=== PATIENT | male | born 1980 | race Caucasian/White ===

== ENCOUNTER 2017-04-29 22:59 | Emergency (ER) | payer OTHER ==
--- NOTE | ~2017-04-29 | CT2 ---
[facility] A Service of [facility] RADIOLOGY TEXT RESULTS PATIENT: ADIN HSIEH LOCATION: [facility] : [birth year] UNIT #: [id number] AGE: [address]: Seamus Luciano MD SEX: M ORDER DR: [id number] [address] [address] [id number] E MR#: [id number] #: [id number] NAME: ADIN HSIEH : 1980 SEX: M STUDY DATE/TIME: 04/30/2017 2:28 UNIT: RIVERA ROOM: STUDY DESCRIPTION: CT Abd and Pelv W Cont Attending Physician: Seamus Luciano M.D. Ordering Physician: Seamus Luciano M.D. Primary Care Physician: Primary Care Physician No MEDICAL IMAGING REPORT This report is preliminary unless electronic signature is present EXAM CT abdomen and pelvis with contrast INDICATION Right lower quadrant abdominal pain for the past 3 days. PROCEDURE Contrast-enhanced CT abdomen and pelvis. This CT exam was performed with one or more of the following radiation dose reduction techniques: automatic exposure control, adjustment of mA and/or kV according to patient size, and iterative reconstruction. COMPARISON None. FINDINGS ABDOMEN WITH CONTRAST: Included lung bases clear. Liver enlarged measuring 22.5 cm. No liver or splenic lesion. Kidneys, adrenal glands, pancreas, gallbladder unremarkable. Bowel loops are nondilated, appendix is normal. PELVIS WITH CONTRAST: No pelvic mass or fluid. No aggressive-appearing bone lesion. IMPRESSION 1. No acute findings in the abdomen or pelvis. Normal appendix. 2. Hepatomegaly Dictated by... [facility] A Service of [facility] RADIOLOGY TEXT RESULTS PATIENT: ADIN HSIEH LOCATION: [facility] : [birth year] UNIT #: [id number] AGE: [address]: Seamus Luciano MD SEX: M ORDER DR: Rigoberto Boss M.D. THIS IS AN ELECTRONICALLY VERIFIED REPORT Rigoberto Boss M.D. at 04/30/2017 10:00 PM STONEY/damaris TD: 04/30/2017 03:10 JOB #: [id number] MEDICAL IMAGING REPORT Page 1 of 1 COPY
[2017-04-30 01:35] LABS: BASOPHIL% 0.8 % (0-2.5); EOSINOPHIL# 0.2 X10e3 (0-0.7); EOSINOPHIL% 3.8 % (0.0-7.0); HEMATOCRIT 43.6 % (38.0-50.0); HEMOGLOBIN 14.3 gm/dL (13.0-16.0); LYMPHOCYTE# 2.5 X10e3 (1.0-3.5); LYMPHOCYTE% 43.5 % (17.0-45.0); MEAN CELL VOLUME 90.8 FL (83-96); MEAN CORPUSCULAR HEMOGLOBIN 29.8 PG (28-34); MEAN CORPUSCULAR HGB CONC 32.8 g/dL (30-36); MEAN PLATELET VOLUME 7.5 FL (6.5-11.5); MONOCYTE# 0.4 X10e3 (0-1.0); MONOCYTE% 7.4 % (3.0-12.0); NEUTROPHIL# 2.5 X10e3 (1.5-7.1); NEUTROPHIL% 44.5 % (40-75); PLATELET COUNT 355 X10e3 (140-420); RED CELL DISTRIBUTION WIDTH 12.8 % (11.0-15.5); WHITE BLOOD COUNT 5.6 X10e3 (4.0-10.5)
[2017-04-30 01:36] LABS: DIFF IND NO
[2017-04-30 02:03] LABS: URINE SOURCE CLEAN CATCH
[2017-04-30 02:06] LABS: ALBUMIN SERUM 4.4 g/dL (3.5-5.0); ALKALINE PHOSPHATASE 65 U/L (32-92); ALT (SGPT) 26 U/L (10-40); AMYLASE 14 U/L (0-46); AST (SGOT) 24 U/L (10-42); BILIRUBIN,TOTAL 0.5 mg/dL (0.2-2.0); BLOOD UREA NITROGEN 17 mg/dL (9-23); CARBON DIOXIDE 28 mmol/L (22-31); CHLORIDE 101 mmol/L (100-111); GLOM FILT RATE Estimated 96.4 mL/min (>60); GLUCOSE FASTING 103 mg/dL (70-110); LIPASE 19 U/L (22-51); POTASSIUM 3.5 mmol/L (3.5-5.1); PROTEIN TOTAL SERUM 7.9 g/dL (6.0-8.3); SODIUM 136 mmol/L (135-145)
[2017-04-30 02:09] LABS: URINE APPEARANCE CLEAR; URINE BILIRUBIN NEG (NEG); URINE BLOOD NEG (NEG); URINE COLOR YELLOW; URINE GLUCOSE NEG (NEG); URINE KETONE NEG (NEG); URINE LEUKOCYTE ESTERASE NEG (NEG); URINE NITRATE NEG (NEG); URINE PROTEIN NEG (NEG); URINE SPECIFIC GRAVITY 1.015 (1.003-1.035)
[2017-04-30 02:12] LABS: CULTURE INDICATED? NO
[2017-04-30 02:12] LABS: BILIRUBIN, DIRECT <0.1 mg/dL (0.0-0.2); BILIRUBIN,INDIRECT 0.4 mg/dL (0.0-0.9)
== END 2017-04-30 03:04 | disposition home or self-care (01) ==
LOC: CED 22:59
PROVIDERS: Emergency Medicine
DX: R10.31 Right lower quadrant pain (principal)
CPT/HCPCS: 36415; 74177; 80048; 80076; 81003; 82150; 83690; 85025; 99284; Q9967